=== PATIENT | male | born 1995 | race Hispanic/Latino ===

== ENCOUNTER 2018-10-19 10:03 | Emergency (ER) | payer BC, OTHER ==
[2018-10-19 10:11] VITALS: BMI 31.1
[2018-10-19 10:12] VITALS: BP 133/75; PULSE 63; RESP 20; TEMP 97.3; O2SAT 98
--- NOTE | 2018-10-19 11:14 | ED PDOC ---
HPI: Skin/Bite Injury Time Seen by Provider: 10/19/18 10:26 Chief Complaint (Nursing): Abnormal Skin Integrity Chief Complaint (Provider): axillary abscess History Per: Patient Additional Complaint(s): 23 y/o M with no significant PMH who presents with Left axillary abscess. Pt states that he began developing a small pink pimple 2 - 3 days ago that has been growing. He went to his [facility] yesterday at which time he was prescribed both Keflex and Bactrim. He has never had an abscess before and does not shave the area. He feels that it may be a reaction to his deodorant, although he has used this deodorant for many years. He states that he came to ER today because he feels that it may be larger. Denies drainage, fever or chills. He is having pain in the area. Past Medical History Reviewed: Historical Data, Nursing Documentation, Vital Signs Vital Signs: Last Vital Signs Temp 97.3 F L 10/19/18 10:11 Pulse 63 10/19/18 10:11 Resp 20 10/19/18 10:11 BP 133/75 10/19/18 10:11 Pulse Ox 98 10/19/18 10:11 - Medical History PMH: No Chronic Diseases Denies: Chronic Kidney Disease - Family History Family History: States: Unknown Family Hx - Home Medications Home Medications: Ambulatory Orders Medication Instructions Recorded Cephalexin [cephalexin] 500 mg PO Q6 #12 cap 07/26/16 Ibuprofen [Motrin Tab] 600 mg PO Q6 PRN 7 Days tab 10/19/18 - Allergies Allergies/Adverse Reactions: Allergies Allergy/AdvReac Type Severity Reaction Status Date / Time No Known Allergies Allergy Verified 10/19/18 10:13 Review of Systems Constitutional: Negative for: Fever, Chills Skin: Positive for: Rash (painful rash) Physical Exam - Reviewed Nursing Documentation Reviewed: Yes Vital Signs Reviewed: Yes - Physical Exam Appears: Positive for: Well Skin: Positive for: Rash (Left axilla with approximately 2cm area of induration, no pustule/drainage/fluctuance. ) Neurologic/Psych: Positive for: Alert, Oriented - ECG O2 Sat by Pulse Oximetry: 98 Medical Decision Making Medical Decision Making: Patient advised that area is not amenable to incision and drainage at this time. He was advised to use warm compresses several times per day and to continue antibiotics as prescribed. Return instructions provided. Disposition - Clinical Impression Clinical Impression: Axillary abscess - Patient ED Disposition Is Patient to be Admitted: No Counseled Patient/Family Regarding: Diagnosis, Need For Followup, Rx Given - Disposition Disposition: Routine/Home Disposition Time: 11:15 Condition: STABLE Additional Instructions: Continue antibiotics as prescribed. Use warm compresses 2 - 3 times per day to see if area will soften. Return to ER if you develop fevers or if area softens but does not resolve with antibiotics as you will likely need to have area drained. [facility] with [facility] for [facility]-evaluation in 2 - 3 days. Take Tylenol or Ibuprofen for pain. Prescriptions: Ibuprofen [Motrin Tab] 600 mg PO Q6 PRN 7 Days tab PRN Reason: Pain, Moderate (4-7) Instructions: Boil (DC) Forms: [employer] (Italian), [facility] ED School/Work Excuse Print Language: LITHUANIAN
== END 2018-10-19 11:12 | disposition home or self-care (01) ==
LOC: H.ER 10:03
DX: L02.412 Cutaneous abscess of left axilla (principal)